=== PATIENT | male | born 1960 | race Two or more races ===

== ENCOUNTER 2022-05-07 09:19 | Emergency (ER) | payer OTHER ==
[~2022-05-07] VITALS: Ht 165.1 cm; Wt 190.0 kg
[2022-05-07] MEDS ORDERED: HYDROcodone-ACET 10/325MG TAB PO ONE (10:15)
[2022-05-07] MEDS ORDERED: MORPHINE SULFATE 4 MG/ML SYR/VIAL IV ONE (10:45)
[2022-05-07] MEDS ORDERED: cloNIDine 0.1 mg/24hr 7 DAY PATCH TD ONE (10:45)
[2022-05-07] MEDS ORDERED: ONDANSETRON HCL 4 MG/2 ML VIAL IV ONE (10:45)
[2022-05-07 10:55] LABS: Basophils # (auto) 0.1 10 ^3/uL (0-0.2); Basophils % (auto) 0.5 % (0.0-2.0); Eosinophils # (auto) 0.2 10 ^3/uL (0-0.8); Eosinophils % (auto) 2.3 % (0.0-7.0); Hemoglobin 13.4 g/dL (13.5-17.5); Lymphocytes # (auto) 1.7 10 ^3/uL (0.4-5.4); Lymphocytes % (auto) 16.8 % (10.0-50.0); Mean Corpuscular Hemoglobin 29.9 pg (28.0-32.0); Mean Corpuscular Hgb Conc. 32.6 g/dL (32.0-36.0); Mean Corpuscular Volume 91.8 fL (80.0-100.0); Monocytes # (auto) 0.5 10 ^3/uL (0-1.3); Monocytes % (auto) 5.1 % (0.0-12.0); Neutrophils # (auto) 7.5 10 ^3/uL (1.6-8.6); Neutrophils % (auto) 75.3 % (37.0-80.0); Nucleated Red Blood Cells % 0.1 %; Red Blood Cells 4.46 10^6/uL (4.5-5.90); Red Cell Distribution Width 13.4 % (11.8-14.3)
[2022-05-07] MEDS ORDERED: cloNIDine HCL 0.1 MG TAB PO ONE (11:00)
[2022-05-07 11:10] LABS: Albumin 3.5 g/dL (3.4-5.0); Calcium 8.8 mg/dL (8.5-10.1); Potassium 3.6 mmol/L (3.5-5.1)
[2022-05-07 11:15] LABS: BUN/Creatinine Ratio 19.6; Bilirubin, Total 0.8 mg/dL (0.2-1.0); Total Protein 7.2 g/dL (6.4-8.2)
[2022-05-07 11:29] LABS: Partial Thromboplastin Time 31.4 sec (24.6-33.4)
[2022-05-07] MEDS ORDERED: PROMETHAZINE HCL 25 MG/ML 1ML IV ONE (12:45)
[2022-05-07] MEDS ORDERED: HYDROmorphone HCL 2 MG/ML VL/or syr IV ONE (12:45)
[2022-05-07] MEDS ORDERED: LABETALOL HCL 5 MG/ML 4ML SYRINGE IV ONE (12:45)
[2022-05-07 17:00] VITALS: BP 140/55
[2022-05-08] MEDS ORDERED: AMLO-489 PO (14:22)
== END 2022-05-07 19:59 | disposition home or self-care (01) ==
LOC: ER 09:19 → EDBD 09:19 → ER 19:59
DX: R04.0 Epistaxis (principal); I16.0 Hypertensive urgency; F17.210 Nicotine dependence, cigarettes, uncomplicated
CPT/HCPCS: 30901; 36415; 71045; 80053; 84484; 85025; 85610; 85730; 96374; 96375; 99284; J1170; J2270; J2405; J2550; J3490

== ENCOUNTER 2022-05-08 04:20 | Emergency (ER) | payer OTHER ==
[~2022-05-08] VITALS: Ht 175.3 cm; Wt 86.3 kg
[2022-05-08] MEDS ORDERED: amLODIPine BESYLATE 5 MG TAB PO ONE (08:00)
[2022-05-08] MEDS ORDERED: AMLO-489 PO (14:22)
[2022-05-08] MEDS ORDERED: cloNIDine HCL 0.1 MG TAB PO ONE (14:30)
[2022-05-08] MEDS ORDERED: HYDROcodone-ACET 10/325MG TAB PO ONE (14:30)
[2022-05-08 17:34] VITALS: BP 134/86
== END 2022-05-08 18:01 | disposition home or self-care (01) ==
LOC: ER 04:20
DX: R04.0 Epistaxis (principal); I16.0 Hypertensive urgency; F17.210 Nicotine dependence, cigarettes, uncomplicated
CPT/HCPCS: 30901